=== PATIENT | male | born 1965 | race Caucasian/White ===

== ENCOUNTER 2023-08-27 10:04 | Inpatient (IN) ==
[2023-08-27] MEDS ORDERED: VANCOMYCIN CONSULT ACTIVE PRN (11:20)
--- NOTE | 2023-08-27 11:26 | Emergency Department Note ---
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 Patient last year or so has been following with [facility] wound clinic in [place]. [facility] and has been dealing for years with a wound on the inner aspect of his left lower leg. Denies fever chills. Denies new trauma. States the wound has had some bit of discharge. There is concerned from staff that the wound is infected and has been on several courses of antibiotic including most recently started several days ago on Augmentin and Levaquin. Not improving. They have not debrided at the present and sent him here for evaluation. PAST MEDICAL HISTORY: As noted above MEDICATIONS: Reviewed home medications SOCIAL HISTORY: [facility] PHYSICAL EXAM: GENERAL: alert and oriented in no acute distress guards at bedside Head: normocephalic and atraumatic EYES: No injection, discharge or icterus. NECK: Trachea midline ENT: Mucous membranes pink and moist. LUNGS: Airway patent. No retractions or tachypnea SKIN: Acyanotic, warm, dry, without rashes EXTREMITIES: Without swelling, tenderness or deformity except for an approximately 12 cm circular area of ulceration with granulation tissue in the medial inferior left lower leg. Surrounding chronic skin changes with purpleish discoloration but not domniick erythema or crepitus. Trace to minimal discharge. No significant swelling or erythema to the left foot or the left knee region. NEUROLOGICAL: No focal deficits. No aphasia. No facial droop or slurred speech. Ambulatory here. Patient's laboratory studies and imaging reviewed. Differential includes Cellulitis, abscess, MRSA infection, DVT, necrotizing fasciitis, dermatitis, drug eruption, allergic reaction, as well as other pathologies. IMPRESSION/MEDICAL DECISION MAKING: Anticoagulated doubt DVT. No significant new trauma reported. Chronic leg wound. Appears to have significant regulation but did not see much for me to actively bleed at this time. No significant surrounding erythema and denies significant systemic symptoms of fever. Doubt sepsis. Did take a wound swab from the wound. No significant leukocytosis. His not improving with outpatient antibiotics. Has been trialed on multiple medications in the reviewed with pharmacist of prior cultures does have history of fluoroquinolone resistant Pseudomonas in the wound. Will start on vancomycin and Zosyn for broad coverage including pseudomonal coverage and MRSA coverage given his risk factor from the present. MRSA swab was sent. At this time given the large wound and failure and need for likely IV antibiotics until these can be set up, will bring the patient in the hospital. DIAGNOSIS: Left leg ulcer and cellulitis DISPOSITION: Hospitalist will evaluate Patient was agreeable with this plan. Past Med/Surg History Medical History (Updated 08/27/23 @ 14:33 by Livier Alcocer MD) Inmate in [facility]al facility [facility] HBV (hepatitis B virus) infection Arthropathy Liver disease COPD (chronic obstructive pulmonary disease) Venous insufficiency Thrombosis Insomnia Factor 5 Leiden mutation, heterozygous Depressive disorder Surgical History H/O hand surgery Social History Smoking Status: Former smoker Second Hand Exposure: No; Do You Dip or Chew Tobacco: No; Hx Alcohol Use: No Hx Substance Use: No Preferred Language: Singaporean Communication Ability: Effective Visual Impairment: No Limitations Hearing Ability: Normal Computer Support Specialist Required: No Beliefs That Will Affect Care: None marital status: Current Living Situation: Other Current Living Situation Comment: [facility] Feels Safe at Home: Yes Allergies Allergies Allergy/AdvReac Type Severity Reaction Status Date / Time No Known Allergies Allergy Verified 01/04/22 08:08 Home Meds Home Medications Medication Instructions Recorded Confirmed tenofovir alafenamide 25 mg tablet 25 mg PO HS 07/03/20 08/27/23 (Vemlidy) acetaminophen 500 mg tablet 500 mg PO QID PRN Pain 12/11/21 08/27/23 albuterol 90 mcg/actuation aerosol 90 mcg inhalation TID PRN sob 12/11/21 08/27/23 inhaler ciclesonide 160 mcg/actuation 1 puff inhalation BID 12/11/21 08/27/23 aerosol inhaler (Alvesco) gabapentin 100 mg capsule 800 mg PO BID 12/11/21 08/27/23 warfarin 3 mg tablet 2.5 mg PO HS 12/11/21 08/27/23 warfarin 4 mg tablet 4 mg PO HS 12/11/21 08/27/23 amoxicillin 875 mg-potassium 1 tab PO BID 08/27/23 08/27/23 clavulanate 125 mg tablet [id number] See Rx Instructions .Route .COMPLEX 08/27/23 08/27/23 petrolatum topical cream (Cetaphil Moisturizing topical cream) levofloxacin 500 mg tablet 500 mg PO DAILY 08/27/23 08/27/23 lisinopril 5 mg tablet 5 mg PO DAILY 08/27/23 08/27/23 mirtazapine 45 mg tablet 45 mg PO HS 08/27/23 08/27/23 multivit,calcium,min-folic acid 1 tab PO DAILY 08/27/23 08/27/23 240 mcg-D3 25 mcg-lycop 300 mcg tablet (One A Day Men Complete) nortriptyline 25 mg capsule 25 mg PO HS 08/27/23 08/27/23 nortriptyline 75 mg capsule 75 mg PO HS 08/27/23 08/27/23 Results & Data (ED) Vital Signs Vital Signs - 24 hr 08/27/23 10:26 08/27/23 12:13 Temperature 36.8 C Temperature Source Oral Pulse Rate 100 H Pulse Rate [Apical] 74 Pulse Rhythm [Apical] Regular Respiratory Rate 12 16 Respiratory Effort / Characteristics Non-Labored Spontaneous Respiratory Depth Normal Respiratory Pattern Regular Blood Pressure 150/111 H Blood Pressure Mean 124 Pulse Oximetry 97 96 Oxygen Delivery Method Room Air Room Air Sepsis Recent Fever Within 48 Hours No Sepsis New/Unexplained Change in Mental Status No Sepsis Action Taken by Nursing No Action Required Laboratory Data 08/27/23 11:10 08/27/23 11:10 Lab Results 08/27/23 Range/Units 11:10 WBC 5.93 (4.8-10.8) K/ul RBC 4.80 (4.70-6.10) M/uL Hgb 14.9 (14.0-18.0) g/dl Hct 42.9 (42.0-52.0) % MCV 89.4 (80.0-100.0) fL MCH 31.0 (25.0-34.0) pg MCHC 34.7 (32.0-36.0) g/dL RDW Std Deviation 44.6 (36.4-46.3) fL RDW Coeff of Piter 13.5 (11.5-14.5) % Plt Count 183 (130-400) K/uL MPV 10.6 (9.4-12.4) fL Immature Gran % (Auto) 0.2 % Neut % (Auto) 71.0 % Lymph % (Auto) 17.9 % Cecil % (Auto) 8.9 % Eos % (Auto) 1.0 % Baso % (Auto) 1.0 % Neut # (Auto) 4.21 (1.40-6.50) K/uL Lymph # (Auto) 1.06 L (1.20-3.40) K/uL Cecil # (Auto) 0.53 (0.11-0.59) K/uL Eos # (Auto) 0.06 (0.00-0.50) K/uL Baso # (Auto) 0.06 (0.00-0.20) K/uL Immature Gran # (Auto) 0.01 (0.01-0.20) K/uL PT 20.3 H (9.0-12.0) Seconds INR 1.9 H (0.9-1.1) Sodium 138 (136-145) mmol/L Potassium 4.2 (3.5-5.1) mmol/L Chloride 106 (98-107) mmol/L Carbon Dioxide 26 (21-32) mmol/L Anion Gap 6 (3-11) BUN 13 (6-23) mg/dl Creatinine 0.87 (0.6-1.4) mg/dl Est Cr Clr Drug Dosing 104.4 ml/min Est GFR ( Amer) 110.3 ml/min Est GFR (Non-Af Amer) 95.1 ml/min BUN/Creatinine Ratio 14.9 (10-20) Glucose 94 (70-99(Fasting)) mg/dl Calcium 9.7 (8.6-10.3) mg/dl Total Bilirubin 0.6 (0.2-1.0) mg/dl AST 68 H (13-39) U/L ALT 88 H (7-52) U/L Alkaline Phosphatase 53 (34-104) U/L Total Protein 8.2 (6.0-8.3) gm/dl Albumin 4.4 (3.4-5.0) gm/dl Globulin 3.8 (2.5-4.0) gm/dl Albumin/Globulin Ratio 1.2 (0.9-2) Administered Medications Discontinued Medications Vancomycin HCl 1,750 mg/ (Sodium Chloride) 535 mls @ 200 mls/hr IV NOW ONE Stop: 08/27/23 14:00 Last Admin: 08/27/23 12:48 Dose: 200 mls/hr Documented By: EDITH Piperacillin Sod/Tazobactam Sod (Zosyn) 4.5 gm in 100 mls @ 200 mls/hr IV NOW ONE Stop: 08/27/23 11:49 Last Infusion: 08/27/23 14:09 Dose: Infused Documented By: Admin: 08/27/23 12:12 Dose: 200 mls/hr Documented By: KV Discharge Plan Visit Data Chief Complaint: Infection, Wound Stated Complaint: WORSENING INFECTION OF LEG ULCERATION ED Provider: Adryan Cordon Discharge Problem: Venous ulcer of left leg Patient Disposition: Being Evaluated by Hospitalist
[2023-08-27 11:29] LABS: Basophils # (auto) 0.06 K/uL (0.00-0.20); Eosinophils # (auto) 0.06 K/uL (0.00-0.50); Hematocrit (blood only) 42.9 % (42.0-52.0); Hemoglobin 14.9 g/dl (14.0-18.0); Immature Granulocytes # (auto) 0.01 K/uL (0.01-0.20); Immature Granulocytes % (auto) 0.2 %; Lymphocytes # (auto) 1.06 K/uL (1.20-3.40); Lymphocytes % (auto) 17.9 %; Mean Corpuscular Hgb Conc 34.7 g/dL (32.0-36.0); Mean Corpuscular Volume 89.4 fL (80.0-100.0); Mean Platelet Volume 10.6 fL (9.4-12.4); Monocytes # (auto) 0.53 K/uL (0.11-0.59); Monocytes % (auto) 8.9 %; Neutrophils # (auto) 4.21 K/uL (1.40-6.50); Platelet Count 183 K/uL (130-400); RDW Coefficient of Variation 13.5 % (11.5-14.5); RDW Standard Deviation 44.6 fL (36.4-46.3); White Blood Count 5.93 K/ul (4.8-10.8)
[2023-08-27 12:00] LABS: Albumin Globulin Ratio 1.2 (0.9-2); Albumin Level 4.4 gm/dl (3.4-5.0); BUN Creatinine Ratio 14.9 (10-20); Bilirubin,Total 0.6 mg/dl (0.2-1.0); Calcium 9.7 mg/dl (8.6-10.3); Creatinine Clr Calc Pharmacy 104.4 ml/min; Est GFR (African American) 110.3 ml/min; Est GFR (Non-African American) 95.1 ml/min; Globulin 3.8 gm/dl (2.5-4.0); Potassium 4.2 mmol/L (3.5-5.1); Total Protein 8.2 gm/dl (6.0-8.3)
[2023-08-27] MEDS: PIPERACILLIN/TAZOBACTAM 4.5 GM/100 ML BAG IV ONE (12:12)
[2023-08-27] MEDS: VANCOMYCIN HCL 1,750 MG in SODIUM CHLORIDE 0.9% 500 ML IV ONE (12:48)
--- NOTE | 2023-08-27 12:58 | History & Physical Report ---
Date of Service August 27, 2023 Assessment & Plan (1) Venous ulcer of left leg: (2) Chronic wound: (3) Thrombosis: (4) Factor 5 Leiden mutation, heterozygous: (5) Insomnia: (6) HBV (hepatitis B virus) infection: (7) Inmate in correctional facility: Plan Pt is a 58yoM prisoner from [facility] with PMHx significant for chronic wound of LLE, venous insufficiency, Hep B infection, Heterozygous for Factor V Leiden mutation with Hx of DVT, Asthma/COPD, Insomnia, Anxiety presenting with concern for infection and potential debridement need of LLE wound. Chronic LLE wound Pt follows with the wound clinic in [place] States he was sent over to the ED for concern for infection and need for possible debridement WBC wnl, hemodynamically stable MRI LLE-r/o osteomyelitis Wound cx pending AM [id number] possible underlying DM cause Noted Hx of venous insufficiency, followed with vascular Surgery in the past, consider repeat arterial/venous studies and input from Vascular. 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 Holding for potential procedure Resume home dosing as soon as able HTN Continue home Lisinopril Continue other home meds as ordered. CODE STATUS: Full code Diet: NPO until seen by general surgery DVT prophylaxis: on warfarin, INR currently 1.9. Holding for potential procedure Dispo: Med/Surg History of Present Illness Chief Complaint: wound Primary Care Provider: SHILA Jose Pt is a 58yoM prisoner from [facility] with PMHx significant for chronic wound of LLE, venous insufficiency, Hep B infection, Heterozygous for Factor V Leiden mutation with Hx of DVT, Asthma/COPD, Insomnia, Anxiety presenting with concern for infection and potential debridement need of LLE wound. States that he typically follows with the wound clinic in [place]. Was also seen by Vascular surgery and had a consultation with a plastic surgeon for the wound but was told that it would be best to attempt a graft after he gets out of penitentiary. States he will be getting out in a month. Was sent over to the ED today out of concern that he was failing outpatient antibiotic treatment with Levaquin and Augmentin and that there was a need for debridement. States that he has had this wound for many years. has received multiple rounds of antibiotics for it. Denies fevers, chills or night sweats, N/V or diarrhea. Allergies Allergy/AdvReac Type Severity Reaction Status Date / Time No Known Allergies Allergy Verified 01/04/22 08:08 Home Medications Medication Instructions Recorded Confirmed Type tenofovir alafenamide 25 mg tablet 25 mg PO HS 07/03/20 08/27/23 History (Vemlidy) acetaminophen 500 mg tablet 500 mg PO QID PRN Pain 12/11/21 08/27/23 History albuterol 90 mcg/actuation aerosol 90 mcg inhalation TID PRN sob 12/11/21 08/27/23 History inhaler ciclesonide 160 mcg/actuation 1 puff inhalation BID 12/11/21 08/27/23 History aerosol inhaler (Alvesco) gabapentin 100 mg capsule 800 mg PO BID 12/11/21 08/27/23 History warfarin 3 mg tablet 2.5 mg PO HS 12/11/21 08/27/23 History warfarin 4 mg tablet 4 mg PO HS 12/11/21 08/27/23 History amoxicillin 875 mg-potassium 1 tab PO BID 08/27/23 08/27/23 History clavulanate 125 mg tablet [id number]-xyine See Rx Instructions .Route .COMPLEX 08/27/23 08/27/23 History petrolatum topical cream (Cetaphil Moisturizing topical cream) levofloxacin 500 mg tablet 500 mg PO DAILY 08/27/23 08/27/23 History lisinopril 5 mg tablet 5 mg PO DAILY 08/27/23 08/27/23 History mirtazapine 45 mg tablet 45 mg PO HS 08/27/23 08/27/23 History multivit,calcium,min-folic acid 1 tab PO DAILY 08/27/23 08/27/23 History 240 mcg-D3 25 mcg-lycop 300 mcg tablet (One A Day Men Complete) nortriptyline 25 mg capsule 25 mg PO HS 08/27/23 08/27/23 History nortriptyline 75 mg capsule 75 mg PO HS 08/27/23 08/27/23 History Past Med/Surg History Medical History (Updated 08/27/23 @ 14:33 by Livier Alcocer MD) Inmate in [facility]al facility [facility] HBV (hepatitis B virus) infection Arthropathy Liver disease COPD (chronic obstructive pulmonary disease) Venous insufficiency Thrombosis Insomnia Factor 5 Leiden mutation, heterozygous Depressive disorder Surgical History H/O hand surgery Social History Smoking Status: Former smoker Second Hand Exposure: No; Do You Dip or Chew Tobacco: No; Hx Alcohol Use: No Hx Substance Use: No Preferred Language: [place]ian Communication Ability: Effective Visual Impairment: No Limitations Hearing Ability: Normal 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 No acute distress Skin: No noted rashes or bruises Psych: Appropriate mood and affect Neuro: No gross deficits HEENT: NC/AT Chest: Nontender to palpation. CV: RRR, Normal s1, s2. No murmurs appreciated Resp: Breath sounds clear bilaterally, no increased effort of breathing. No crackles/rhonchi/rales. Abdomen: Soft, nontender, nondistended. Extremities: LLE with open ulcer, tender closer to the edges Results & Data Results & Data Vital Signs (Past 12 Hours) Vital Signs Temp Pulse Pulse Resp BP Pulse Ox O2 Del Method 08/27/23 12:13 74 16 96 Room Air 08/27/23 10:26 36.8 C 100 H 12 150/111 H 97 Room Air Code Status & VTE Plan VTE Prophylaxis Plan VTE Prophylaxis will be ordered: Yes
[2023-08-27 13:22] LABS: INR 1.9 (0.9-1.1); Prothrombin Time 20.3 Seconds (9.0-12.0)
[2023-08-27] MEDS ORDERED: ONDANSETRON INJ 2 MG/ML 2 ML VIAL IV PRN (15:49)
[2023-08-27] MEDS ORDERED: POLYETHYLENE (MIRALAX) 17 GM PACK PO PRN (15:49)
[2023-08-27] MEDS ORDERED: ALUMINUM/MAGNESIUM SUSP 30 ML UDC PO PRN (15:49)
[2023-08-27] MEDS: DAPTOmycin 300 MG in SYRINGE 0 ML IV SCH (17:39)
[2023-08-27] MEDS: PIPERACILLIN/TAZOBACTAM 4.5 GM in DEXTROSE 5% MINI-B 100 ML IV SCH (17:39)
--- NOTE | 2023-08-27 20:25 | Surgery Consultation ---
Date of Consultation August 27, 2023 Assessment & Plan (1) Venous ulcer of left leg: The patient is currently be admitted on the hospitalist service. From surgical respective we recommend the following: Would employ the assistance of the wound care team/nurse Patient has been started on antibiotics in form of daptomycin and Zosyn. This should continue at the discretion of the hospitalist service In order to evaluate for potential bony involvement and MRI has been ordered by the medical service. Will follow for the results of this. The wound in question appears to be a venous stasis ulcer. Wound such as this are typically not handled by general surgery may be best be handled by vascular surgery or orthopedics or even podiatry. Particularly, if there is bony involvement noted on the CT scan this would fall out of the realm of general surgery. We will await the results of the MRI as noted above with further recommendations to follow. Supervising Physician Co-Signing Physician Notes d/w PA, agree with above. Chronic LLE venous stasis ulcer. Referred to ED for debridement. Needs imaging, given location may be better served w ortho or vascular consult. History of Present Illness Reason for Consultation: Lower extremity venous stasis wound Attending Physician: Livier Alcocer MD History of Present Illness This is a 58-year-old male with a history of a chronic left lower extremity venous stasis ulcer. The patient notes that he has had this wound for several years. He does note that he had a venous ablation procedure by Dr. Gunter in December 2021. Patient notes that he has been receiving care at a wound care center in [place], [place]. The patient notes that he has been seen by both vascular surgery and he is also had a consultation with a plastic surgeon for potential flap/skin grafthe tells me that the plastic surgeon was unwilling to perform this procedure while the patient was incarcerated but can be considered once he is released from jail. The patient was sent to the emergency department by the wound care center today as they felt that he was failing outpatient antibiotic treatment with Levaquin and Augmentin and there is concern for need for debridement of his wound. The patient denies any fevers, shakes, or chills. He denies any pain at his lower extremity wound. He denies any nausea or vomiting. Since admission to the hospital patient has had labs and imaging which independent reviewed. CBC revealed white blood cell count, hemoglobin, hematocrit, platelet count were within normal range. Chemistry profile showed sodium and potassium along with the BUN and creatinine were within normal range. INR revealed a level of 1.9. An MRSA nasal screen was noted to be negative. The patient had a COVID test that was also negative. At the time my interview the patient was resting comfortably in bed and he was no distress. Allergies Allergy/AdvReac Type Severity Reaction Status Date / Time No Known Allergies Allergy Verified 01/04/22 08:08 Home Medications Medication Instructions Recorded Confirmed Type tenofovir alafenamide 25 mg tablet 25 mg PO HS 07/03/20 08/27/23 History (Vemlidy) acetaminophen 500 mg tablet 500 mg PO QID PRN Pain 12/11/21 08/27/23 History albuterol 90 mcg/actuation aerosol 90 mcg inhalation TID PRN sob 12/11/21 08/27/23 History inhaler ciclesonide 160 mcg/actuation 1 puff inhalation BID 12/11/21 08/27/23 History aerosol inhaler (Alvesco) gabapentin 100 mg capsule 800 mg PO BID 12/11/21 08/27/23 History warfarin 3 mg tablet 2.5 mg PO HS 12/11/21 08/27/23 History warfarin 4 mg tablet 4 mg PO HS 12/11/21 08/27/23 History amoxicillin 875 mg-potassium 1 tab PO BID 08/27/23 08/27/23 History clavulanate 125 mg tablet [id number] See Rx Instructions .Route .COMPLEX 08/27/23 08/27/23 History petrolatum topical cream (Cetaphil Moisturizing topical cream) levofloxacin 500 mg tablet 500 mg PO DAILY 08/27/23 08/27/23 History lisinopril 5 mg tablet 5 mg PO DAILY 08/27/23 08/27/23 History mirtazapine 45 mg tablet 45 mg PO HS 08/27/23 08/27/23 History multivit,calcium,min-folic acid 1 tab PO DAILY 08/27/23 08/27/23 History 240 mcg-D3 25 mcg-lycop 300 mcg tablet (One A Day Men Complete) nortriptyline 25 mg capsule 25 mg PO HS 08/27/23 08/27/23 History nortriptyline 75 mg capsule 75 mg PO HS 08/27/23 08/27/23 History Patient History Medical History Inmate in correctional facility [facility] HBV (hepatitis B virus) infection Arthropathy Liver disease COPD (chronic obstructive pulmonary disease) Venous insufficiency Thrombosis Insomnia Factor 5 Leiden mutation, heterozygous Depressive disorder Surgical History H/O hand surgery Social History Smoking Status: Never smoker Second Hand Exposure: No; Do You Dip or Chew Tobacco: No; Hx Alcohol Use: No Hx Substance Use: No Preferred Language: Burmese Communication Ability: Effective Visual Impairment: No Limitations Hearing Ability: Normal 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 Beliefs That Will Affect Care: None marital status: Current Living Situation: Other Current Living Situation Comment: Inmate at [facility] Other Information That Helps Us Care for You: No Feels Safe at Home: Yes Safety Concerns: Feels Safe At This Time Review of Systems Constitutional: no fever and no chills Ear, Nose, Mouth, Throat: no hearing loss Respiratory: no cough and no dyspnea Cardiovascular: no chest pain Gastrointestinal: no nausea and no vomiting Genitourinary: no dysuria Musculoskeletal: no back pain Integumentary: no rash Neurologic: no localized weakness Physical Exam Constitutional: WD/WN, vitals as above Eyes: no conjunctival abnormality ENMT: Ears: no hearing impairment and no external ear abnormality Mouth: no oropharynx abnormality Neck: trachea midline Respiratory: normal respiratory effort; no respiratory distress and no labored breathing Cardiovascular: Rate/Rhythm: regular rate and regular rhythm Gastrointestinal (Abdomen): Soft and nontender Musculoskeletal: On the patient's left lower extremity just near the medial malleolus the patient had approximately 12 cm circular area of ulceration with some surrounding erythema. There is no drainage noted from the wound. There is no crepitus noted in the soft tissue. The patient did have palpable dorsalis pedis pulse in this extremity. Skin: no rashes Neurologic: moves all extremities Psychiatric: A+Ox3, euthymic affect Results & Data Vital Signs (Past 12 Hours) Vital Signs Temp Pulse Pulse Pulse Resp BP BP 08/27/23 15:30 36.6 C 66 16 153/87 H 08/27/23 14:00 80 18 150/78 H 08/27/23 12:13 74 16 08/27/23 10:26 36.8 C 100 H 12 150/111 H Pulse Ox O2 Del Method 08/27/23 15:30 98 Room Air 08/27/23 14:00 99 Room Air 08/27/23 12:13 96 Room Air 08/27/23 10:26 97 Room Air PG Care Time/CCT Total # of Minutes Spent Total Time Spent with Patient: Total time spent is greater than 50% in coordination of care (as documented) at patient's floor/unit and/or counseling patient: Coding Level of Care Code 98312 IN/OBS CONSULT LVL 5,80M Diagnoses Venous ulcer of left leg I83.029; L97.929
[2023-08-27] MEDS ORDERED: NORTRIPTYLINE HCL 25 MG CAP PO SCH (21:00)
[2023-08-27] MEDS: ACETAMINOPHEN 500 MG TAB PO PRN (21:20)
[2023-08-27] MEDS: GABAPENTIN 400 MG CAP PO SCH (21:20)
[2023-08-27] MEDS: MIRTAZAPINE SOLTAB 15 MG PO SCH (21:21)
[2023-08-27] MEDS: NORTRIPTYLINE HCL 25 MG CAP PO SCH (21:21)
[2023-08-27] MEDS: GADOBUTROL 65ML VIAL IV ONE (23:46)
--- NOTE | 2023-08-28 01:52 | Magnetic Resonance Report ---
Exam(s): MRI EXTREMITY W/WO Contrast IV Amt: 9cc gadavist EXAM: MR Left Lower Extremity Without and With Intravenous Contrast CLINICAL HISTORY: Reason for exam: chronic wound, r/o osteomyelitis. TECHNIQUE: Multiplanar magnetic resonance images of the left lower extremity without and with intravenous contrast. CONTRAST: Patient received 9cc gadavist of IV contrast COMPARISON: No relevant prior studies available. FINDINGS: Bones/joints: Unremarkable. No dislocation. No MR evidence of osteomyelitis of the tibia or fibula. No fracture. Soft tissues: Subcutaneous edema along the anterior aspect of the tibia and posteromedial aspect of the medial head of the gastrocnemius. Correlate for any wound or ulceration, which is limited in evaluation on MRI. Other findings: No fluid collection or abscess. No MR evidence of myositis. IMPRESSION: 1. No MR evidence of osteomyelitis of the tibia or fibula. 2. Subcutaneous edema along the anterior aspect of the tibia and posteromedial aspect of the medial head of the gastrocnemius. Correlate for any wound or ulceration, which is limited in evaluation on MRI. 3. No fluid collection or abscess. Electronically signed by: Rodolfo Ndiaye MD 08/28/23 01:50 AM
[2023-08-28 06:28] LABS: Basophils # (auto) 0.04 K/uL (0.00-0.20); Eosinophils # (auto) 0.14 K/uL (0.00-0.50); Eosinophils % (auto) 3.4 %; Hematocrit (blood only) 41.9 % (42.0-52.0); Hemoglobin 14.5 g/dl (14.0-18.0); Immature Granulocytes # (auto) 0.01 K/uL (0.01-0.20); Immature Granulocytes % (auto) 0.2 %; Lymphocytes # (auto) 1.32 K/uL (1.20-3.40); Lymphocytes % (auto) 31.9 %; Mean Corpuscular Hemoglobin 31.2 pg (25.0-34.0); Mean Corpuscular Hgb Conc 34.6 g/dL (32.0-36.0); Mean Corpuscular Volume 90.1 fL (80.0-100.0); Mean Platelet Volume 10.5 fL (9.4-12.4); Monocytes # (auto) 0.47 K/uL (0.11-0.59); Monocytes % (auto) 11.4 %; Neutrophils # (auto) 2.16 K/uL (1.40-6.50); Neutrophils % (auto) 52.1 %; Platelet Count 144 K/uL (130-400); RDW Coefficient of Variation 13.6 % (11.5-14.5); RDW Standard Deviation 45.1 fL (36.4-46.3); Red Blood Count 4.65 M/uL (4.70-6.10); White Blood Count 4.14 K/ul (4.8-10.8)
[2023-08-28 06:45] LABS: Albumin Globulin Ratio 1.3 (0.9-2); BUN Creatinine Ratio 12.5 (10-20); Bilirubin,Total 0.8 mg/dl (0.2-1.0); Calcium 8.9 mg/dl (8.6-10.3); Creatinine Clr Calc Pharmacy 87.3 ml/min; Est GFR (African American) 91.3 ml/min; Est GFR (Non-African American) 78.8 ml/min; Globulin 3.1 gm/dl (2.5-4.0); Magnesium 1.9 mg/dl (1.7-2.4); Phosphorus 3.6 mg/dl (2.5-4.9); Potassium 4.2 mmol/L (3.5-5.1); Total Protein 7.1 gm/dl (6.0-8.3)
[2023-08-28 06:49] LABS: INR 1.8 (0.9-1.1)
[2023-08-28 07:58] LABS: Estimated Average Glucose 117 mg/dl; Hemoglobin A1C 5.7 % (4.5-5.6)
[2023-08-28] MEDS: lisinopril 5 MG TAB PO SCH (09:26)
[2023-08-28] MEDS: MULTIVITAMIN TAB PO SCH (09:26)
[2023-08-28] MEDS: FLUTICASONE FUROATE 100MCG 14 PUFFS/INHALER INH SCH (09:27)
--- NOTE | 2023-08-28 15:44 | Hospitalist Progress Note ---
Date of Service August 28, 2023 Assessment & Plan (1) Venous ulcer of left leg: (2) Chronic wound: (3) Thrombosis: (4) Factor 5 Leiden mutation, heterozygous: (5) Insomnia: (6) HBV (hepatitis B virus) infection: (7) Inmate in correctional facility: Plan This is a 58yoM prisoner from [facility] with PMHx significant for chronic wound of LLE, venous insufficiency, Hep B infection, Heterozygous for Factor V Leiden mutation with Hx of DVT, Asthma/COPD, Insomnia, Anxiety presenting with concern for infection and potential debridement need of LLE wound. Chronic LLE wound Pt follows with the wound clinic in [place], last seen in July he was sent over to the ED for concern for infection and need for possible debridement WBC wnl, hemodynamically stable MRI LLE- No MR evidence of osteomyelitis of the tibia or fibula. Subcutaneous edema along the anterior aspect of the tibia and posteromedial aspect of the medial head of the gastrocnemius. Wound cx pending AM hgba1c revealed a1c of 5.7, pre-diabetic range Noted Hx of venous insufficiency, followed with vascular Surgery in the past, consider repeat arterial/venous studies and input from Vascular. Notes he was told he can't have a graft until out of custodial (per pt, next month) Consult General Surgery for possible debridement - do not typically treat these wounds, recommended podiatry vs. ortho, wound care. Podiatry feels wound is out of scope. Appreciate wound care nurse evaluation - recommend continuing santyl starting today naveen thick and using a tubigrip. 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 CODE STATUS: Full code Diet: NPO until seen by general surgery DVT prophylaxis: resume Coumadin Dispo: Med/Surg Patient seen in collaboration with Dr. Guzman. Please see addendum. I spent a total of 60 minutes coordinating, documenting, and providing care for this patient excluding time spent in the performance of separately billed services. Admission and Anticipated Discharge Date Admission Date: August 27, 2023 Supervising Physician Co-Signing Physician Notes Patient seen and examined independently. Discussed with the provider. Patient has chronic venous ulcer. Evaluated by general surgery. Discussion was done with podiatry as well. Wound care does not suggest any role of debridement at this time. MRI ruled out bone involvement. Continue IV antibiotics. I have reviewed the advanced practitioner's documentation, and I agree with, and take responsibility for the plan of care I spent a total of 20 minutes coordinating, documenting, and providing care for this patient excluding time spent in the performance of separately billed services. All of the aforementioned completed while collaborating with the assigned advanced practitioner for a full treatment plan Please note the above document was generated using voice recognition software. It may contain grammatical, syntax or spelling errors. Any formal questions or concerns about the content, text or information contained within the body of this dictation should be directly addressed to the provider for clarification Subjective Patient seen in 363 bed 1 in follow-up for left lower extremity wound. Patient resting comfortably. Denies any new complaints overnight. No fever, chills, lightheadedness, headache, chest pain, shortness of breath, nausea, vomiting, abdominal pain, dysuria, diarrhea or constipation. Reportedly follows with wound clinic in [place] and was last seen in July. Review of Systems Review of Systems: At least ten systems reviewed and negative except as noted in the HPI. Physical Exam Physical Exam: Gen: WD/WN, NAD,laying in bed, resting comfortably, A&Ox3 HEENT: Normocephalic, atraumatic, conjunctivae moist, sclerae anicteric, mucous membranes moist Lung: Clear to Auscultation bilaterally, no wheezes/rales/rhonchi Heart: Regular rate, regular rhythm, no murmurs, rubs, or gallops Abdomen: Soft, NT, ND +BS x 4 Extremities: BLE edema L>R, LLE with venous stasis changes, well circumscribed, approx 12 cm wound proximal to medial malleolus, without drainage Skin: Warm, no rash Results & Data Results & Data Vital Signs (Past 12 Hours) Vital Signs Temp Pulse Resp BP Pulse Ox O2 Del Method 08/28/23 14:16 36.4 C L 73 15 116/81 95 Room Air 08/28/23 07:41 35.8 C L 60 16 119/76 98 Room Air Laboratory Results Short CBC 08/28/23 Range/Units 06:05 WBC 4.14 L (4.8-10.8) K/ul Hgb 14.5 (14.0-18.0) g/dl Hct 41.9 L (42.0-52.0) % Plt Count 144 (130-400) K/uL BMP 08/28/23 06:05 Sodium 138 Potassium 4.2 Chloride 107 Carbon Dioxide 28 BUN 13 Creatinine 1.04 Glucose 93 Calcium 8.9 Liver Function 08/28/23 Range/Units 06:05 Total Bilirubin 0.8 (0.2-1.0) mg/dl AST 70 H (13-39) U/L ALT 85 H (7-52) U/L Alkaline Phosphatase 48 (34-104) U/L Albumin 4.0 (3.4-5.0) gm/dl Diagnostic Findings Lower Extremity MRI 08/27/23 15:49 Exam(s): MRI EXTREMITY W/WO Contrast IV Amt: 9cc gadavist EXAM: MR Left Lower Extremity Without and With Intravenous Contrast CLINICAL HISTORY: Reason for exam: chronic wound, r/o osteomyelitis. TECHNIQUE: Multiplanar magnetic resonance images of the left lower extremity without and with intravenous contrast. CONTRAST: Patient received 9cc gadavist of IV contrast COMPARISON: No relevant prior studies available. FINDINGS: Bones/joints: Unremarkable. No dislocation. No MR evidence of osteomyelitis of the tibia or fibula. No fracture. Soft tissues: Subcutaneous edema along the anterior aspect of the tibia and posteromedial aspect of the medial head of the gastrocnemius. Correlate for any wound or ulceration, which is limited in evaluation on MRI. Other findings: No fluid collection or abscess. No MR evidence of myositis. IMPRESSION: 1. No MR evidence of osteomyelitis of the tibia or fibula. 2. Subcutaneous edema along the anterior aspect of the tibia and posteromedial aspect of the medial head of the gastrocnemius. Correlate for any wound or ulceration, which is limited in evaluation on MRI. 3. No fluid collection or abscess. Electronically signed by: Rodolfo Ndiaye MD 08/28/23 01:50 AM
[2023-08-28] MEDS: WARFARIN SOD 2.5 MG TAB PO SCH (16:49)
[2023-08-28] MEDS: WARFARIN SOD 4 MG TAB PO SCH (16:49)
[2023-08-28] MEDS: TENOFOVIR ALAFENAMIDE FUMARATE PO SCH (17:21)
[2023-08-28] MEDS ORDERED: TENOFOVIR ALAFENAMIDE FUMARATE PO SCH (21:00)
[2023-08-29 06:12] LABS: Basophils # (auto) 0.06 K/uL (0.00-0.20); Basophils % (auto) 1.1 %; Eosinophils # (auto) 0.15 K/uL (0.00-0.50); Eosinophils % (auto) 2.9 %; Hematocrit (blood only) 47.4 % (42.0-52.0); Hemoglobin 15.8 g/dl (14.0-18.0); Immature Granulocytes # (auto) 0.01 K/uL (0.01-0.20); Immature Granulocytes % (auto) 0.2 %; Lymphocytes # (auto) 1.57 K/uL (1.20-3.40); Lymphocytes % (auto) 30.1 %; Mean Corpuscular Hemoglobin 30.4 pg (25.0-34.0); Mean Corpuscular Hgb Conc 33.3 g/dL (32.0-36.0); Mean Corpuscular Volume 91.2 fL (80.0-100.0); Mean Platelet Volume 10.7 fL (9.4-12.4); Monocytes # (auto) 0.54 K/uL (0.11-0.59); Monocytes % (auto) 10.3 %; Neutrophils # (auto) 2.89 K/uL (1.40-6.50); Neutrophils % (auto) 55.4 %; Platelet Count 159 K/uL (130-400); RDW Coefficient of Variation 13.5 % (11.5-14.5); RDW Standard Deviation 45.4 fL (36.4-46.3); White Blood Count 5.22 K/ul (4.8-10.8)
[2023-08-29 06:30] LABS: BUN Creatinine Ratio 14.6 (10-20); C Reactive Protein 1.42 mg/dl (0-0.5); Calcium 9.2 mg/dl (8.6-10.3); Creatinine Clr Calc Pharmacy 88.2 ml/min; Est GFR (African American) 92.4 ml/min; Est GFR (Non-African American) 79.7 ml/min
[2023-08-29 06:36] LABS: INR 1.5 (0.9-1.1); Prothrombin Time 15.6 Seconds (9.0-12.0)
--- NOTE | 2023-08-29 13:01 | Discharge Summary ---
Discharge Summary Date of Service August 29, 2023 Notes For Next Care Provider chronic LLE wound, no e/o osteo Medication Changes From Visit Continue Augmentin BID and Levofloxacin 500mg daily x 5 days to complete course. Admission HPI Per Admitting Provider Pt is a 58yoM prisoner from [facility] with PMHx significant for chronic wound of LLE, venous insufficiency, Hep B infection, Heterozygous for Factor V Leiden mutation with Hx of DVT, Asthma/COPD, Insomnia, Anxiety presenting with concern for infection and potential debridement need of LLE wound. States that he typically follows with the wound clinic in [place]. Was also seen by Vascular surgery and had a consultation with a plastic surgeon for the wound but was told that it would be best to attempt a graft after he gets out of [facility]. States he will be getting out in a month. Was sent over to the ED today out of concern that he was failing outpatient antibiotic treatment with Levaquin and Augmentin and that there was a need for debridement. States that he has had this wound for many years. has received multiple rounds of antibiotics for it. Denies fevers, chills or night sweats, N/V or diarrhea. Admission Exam Per Admitting Provider General: Alert, oriented. No acute distress Skin: No noted rashes or bruises Psych: Appropriate mood and affect Neuro: No gross deficits HEENT: NC/AT Chest: Nontender to palpation. CV: RRR, Normal s1, s2. No murmurs appreciated Resp: Breath sounds clear bilaterally, no increased effort of breathing. No crackles/rhonchi/rales. Abdomen: Soft, nontender, nondistended. Extremities: LLE with open ulcer, tender closer to the edges Principal Dx & Hospital Course #1 = Principal Diagnosis (1) Venous ulcer of left leg: (2) Chronic wound: (3) Thrombosis: (4) Factor 5 Leiden mutation, heterozygous: (5) Insomnia: (6) HBV (hepatitis B virus) infection: (7) Inmate in correctional facility: Plan This is a 58yoM prisoner from [facility] with PMHx significant for chronic wound of LLE, venous insufficiency, Hep B infection, Heterozygous for Factor V Leiden mutation with Hx of DVT, Asthma/COPD, Insomnia, Anxiety presenting with concern for infection and potential debridement need of LLE wound. Patient follows with the wound clinic in [place] for a chronic LLE wound, last seen in July. Was sent over for evaluation for possible debridement. No le ukocytosis, hemodynamically stable. MRI LLE with no MR evidence of osteomyelitis of the tibia or fibula. Subcutaneous edema along the anterior aspect of the tibia and posteromedial aspect of the medial head of the gastrocnemius. Preliminary wound culture growing probable pseudomonas species, sensitivities pending. Has followed with vascular surgery in the past with plans for graft evaluation once he is released from [facility] (reportedly next month). Appreciate wound care nurse evaluation - recommend continuing santyl starting today naveen thick and using a tubigrip. Did not feel the wound needs to be taken to OR for debridement at this time. Discharging on 5 days days of Augmentin and levofloxacin to complete antibiotic treatment. Follow up with [place] wound care. Hemodynamically stable and comfortable at time of discharge back to [facility]. Hand off provided over the phone with [facility] provider. Discharge Exam Gen: WD/WN, NAD,laying in bed, resting comfortably, A&Ox3 HEENT: Normocephalic, atraumatic, conjunctivae moist, sclerae anicteric, mucous membranes moist Lung: Clear to Auscultation bilaterally, no wheezes/rales/rhonchi Heart: Regular rate, regular rhythm, no murmurs, rubs, or gallops Abdomen: Soft, NT, ND +BS x 4 Extremities: BLE edema improved from previous, LLE with chronic venous stasis changes, dressing just replaced, c/d/i Skin: Warm, no rash Updated Medication List Medication Instructions Recorded Confirmed Type tenofovir alafenamide 25 mg tablet 25 mg PO HS 07/03/20 08/27/23 History (Vemlidy) acetaminophen 500 mg tablet 500 mg PO QID PRN Pain 12/11/21 08/27/23 History albuterol 90 mcg/actuation aerosol 90 mcg inhalation TID PRN sob 12/11/21 08/27/23 History inhaler ciclesonide 160 mcg/actuation 1 puff inhalation BID 12/11/21 08/27/23 History aerosol inhaler (Alvesco) gabapentin 100 mg capsule 800 mg PO BID 12/11/21 08/27/23 History warfarin 3 mg tablet 2.5 mg PO HS 12/11/21 08/27/23 History warfarin 4 mg tablet 4 mg PO HS 12/11/21 08/27/23 History [id number] See Rx Instructions .Route .COMPLEX 08/27/23 08/27/23 History petrolatum topical cream (Cetaphil Moisturizing topical cream) lisinopril 5 mg tablet 5 mg PO DAILY 08/27/23 08/27/23 History mirtazapine 45 mg tablet 45 mg PO HS 08/27/23 08/27/23 History multivit,calcium,min-folic acid 1 tab PO DAILY 08/27/23 08/27/23 History 240 mcg-D3 25 mcg-lycop 300 mcg tablet (One A Day Men Complete) nortriptyline 25 mg capsule 25 mg PO HS 08/27/23 08/27/23 History nortriptyline 75 mg capsule 75 mg PO HS 08/27/23 08/27/23 History amoxicillin 875 mg-potassium 1 tab PO BID #10 tabs 08/29/23 08/27/23 Rx clavulanate 125 mg tablet levofloxacin 500 mg tablet 500 mg PO DAILY #5 tabs 08/29/23 08/27/23 Rx Hospital Stay Data Consultations 08/27/23 11:53 ED Decision to Admit Stat 08/27/23 15:49 Consult General Surgery Routine 08/28/23 07:59 Consult Podiatry Routine Diagnostic Imagining Performed 08/27/23 15:49 MRI Leg [MR lower leg LT wo/w con] Urgent Pending Results Patient Have Any Pending Studies at Discharge: Yes Discharge Instructions Given to Patient (Per Discharging Provider) MEDICATION CHANGES: Continue Augmentin BID and Levofloxacin 500mg daily x 5 days to complete course. SUMMARY OF TEST RESULTS: Admitted for concern for infection and need for possible debridement MRI LLE- No MR evidence of osteomyelitis of the tibia or fibula. Subcutaneous edema along the anterior aspect of the tibia and posteromedial aspect of the medial head of the gastrocnemius. AM hgba1c revealed a1c of 5.7, pre-diabetic range No surgical debridement indicated at this time PENDING TEST RESULTS: Wound culture sensitivities. Preliminary growing probable pseudomonas species with sensitivities to follow RECOMMENDATIONS FOR FOLLOW-UP: Follow up wound care in [place]. Complete antibiotic in its entirety. Wound care instructions: Clean wound with normal saline and pat dry. Apply 2 layers of Adaptic to the wound bed, cover with ABD and secure with Kerlix. Change daily or as needed for increased drainage. Continue medication regimen as scheduled aside from changes noted above. OTHER INSTRUCTIONS: Seek medical attention if you have: * temperature above 101 * chest pain or trouble breathing * abdominal pain, nausea, vomiting * diarrhea, dark stools or bloody stools * any unanswered questions or concerns Call 911 if symptoms are severe. Please take good care of yourself. Call if you have any questions or problems. You can reach a [facility] hospitalist on duty at [facility] 24 hours a day by calling [phone]. Anette Clements PA-C [facility] Hospitalist Total Time Total Time Spent Total Time Spent (In Minutes): 60 Supervising Physician Co-Signing Physician Notes Patient seen and examined independently. Discussed with the provider. Patient has chronic venous ulcer. Wound care does not suggest any role of debridement at this time. MRI ruled out bone involvement. Urine culture growing Pseudomonas; likely colonization given his previous history. [facility] to [facility] with instruction for wound care. I have reviewed the advanced practitioner's documentation, and I agree with, and take responsibility for the plan of care I spent a total of 20 minutes coordinating, documenting, and providing care for this patient excluding time spent in the performance of separately billed services. All of the aforementioned completed while collaborating with the assigned advanced practitioner for a full treatment plan Please note the above document was generated using voice recognition software. It may contain grammatical, syntax or spelling errors. Any formal questions or concerns about the content, text or information contained within the body of this dictation should be directly addressed to the provider for clarification
== END 2023-08-29 18:28 | DRG 300 ==
LOC: ED 10:04 → 3W 14:00 → SUATTDRO 14:29 → 3W 14:29